=== PATIENT | male | born 1995 | race Hispanic/Latino ===

== ENCOUNTER 2023-02-22 13:50 | Inpatient (IN) | payer BC ==
[2023-02-22] MEDS ORDERED: Iopamidol-370 76% 500 ML MDV (1 ML CHARGE) ONE (14:23)
[2023-02-22 14:39] LABS: #Monocytes 0.3 thou/uL (0.11-0.59); #Neutrophils 3.6 thou/uL (1.40-6.50); %Lymphocytes 20.8 % (21.0-51.0); %Monocytes 6.9 % (0.0-10.0); %Neutrophils 72.1 % (42.0-75.0); Hematocrit 38.9 % (42.0-52.0); Hemoglobin 13.3 g/dL (14.0-18.0); Mean Corpuscular HGB CONC 34.2 g/dL (32.0-36.0); Mean Corpuscular Hemoglobin 28.4 pg (27.0-31.0); Mean Corpuscular Volume 82.9 fl (78.0-98.0); Platelet Count 174 10x3/uL (130-400); RBC Distribution Width 12.5 % (11.5-14.5); Red Blood Cell (RBC) Count 4.69 mill/uL (4.70-6.10)
[2023-02-22] MEDS ORDERED: Acetaminophen 500 MG TAB ONE (14:48)
[2023-02-22 15:02] LABS: ALT (SGPT) 55 U/L (8-55); AST (SGOT) 32 U/L (5-34); Albumin 3.9 g/dL (3.5-5.0); Alkaline Phosphatase 68 U/L (40-110); Anion Gap 11 mmol/L (10-20); BUN (Urea Nitrogen) 11 mg/dL (8.9-20.6); Bilirubin, Total 0.3 mg/dL (0.2-1.2); Calc. Creatinine Clearance 0 mL/min (70-130); Calcium 8.9 mg/dL (7.8-10.44); Carbon Dioxide 27 mmol/L (22-29); Chloride 101 mmol/L (98-107); Estimated GFR 128; Globulin 4.5 g/dL (2.4-3.5); Glucose 67 mg/dL (70-105); Protein, Total 8.4 g/dL (6.0-8.3); Sodium 135 mmol/L (136-145)
[2023-02-22] MEDS ORDERED: Doxycycline 100 MG CAP ONE (15:48)
[2023-02-22] MEDS ORDERED: cefTRIAXone (ROCEPHIN) 1 GM VIAL ONE (15:49)
[2023-02-22] MEDS ORDERED: Ondansetron PF 4 MG/2 ML Vial ONE (16:10)
[2023-02-22 16:15] LABS: Bacteria/HPF None Seen HPF (None Seen); Bilirubin Negative (Negative); Blood, Urine 1+ (Negative); CAUTI Indications for Culture Dysuria,urgency,freq; Clarity Clear (Clear); Glucose, Urine (Dipstick) Normal (Negative); Ketone, Urine Negative (Negative); Leukocyte Negative Leu/uL (Negative); Nitrite Negative (Negative); Protein, Urine (Dipstick) Negative (Neg-Trace); RBC/HPF 0-3 HPF (0-3); Squamous Epithelial None Seen HPF (0-3); Urobilinogen Normal mg/dL (Less than 2); WBC/HPF None Seen HPF (0-3)
[2023-02-22 16:17] LABS: Urine Culture Reflex No No
[2023-02-22] MEDS ORDERED: Ibuprofen 200 MG TAB ONE (16:21)
[2023-02-22] MEDS ORDERED: Ondansetron PF 4 MG/2 ML Vial IVP PRN (16:31)
[2023-02-22] MEDS ORDERED: Ibuprofen 800 MG TAB PO PRN (16:34)
[2023-02-22] MEDS ORDERED: Acyclovir Sodium 650 MG in Sodium Chloride 0.9% 100 ML IVPB SCH (17:00)
[2023-02-22] MEDS ORDERED: Polyethylene Glycol 3350 17 GM Packet PO SCH (17:15)
[2023-02-22] MEDS ORDERED: cefTRIAXone\\ROCEPHIN 1 GM in Sodium Chloride 0.9% 100 ML IVPB SCH (17:15)
[2023-02-22 17:46] LABS: SARS-CoV-2 NAA Rapid Test DETECTED (NotDetected)
[2023-02-22] MEDS: Sodium Chloride 0.9% 1,000 ML IV SCH (20:58)
[2023-02-22] MEDS: Senokot S 8.6-50 MG TAB PO SCH (21:06)
[2023-02-22] MEDS: HYDROcodone/Acetaminophen 5/325 mg Tablet PO PRN (21:07)
[2023-02-22 21:17] LABS: Lactic Acid 1.4 mmol/L (0.5-2.2)
[2023-02-23] MEDS: HYDROcodone/Acetaminophen 5/325 mg Tablet PO PRN ×2 (01:06→11:31)
[2023-02-23] MEDS: Acetaminophen 325 MG TAB PO PRN ×2 (01:07→17:35)
[2023-02-23] MEDS: Sodium Chloride 0.9% 1,000 ML IV SCH ×2 (01:57→06:22)
[2023-02-23 05:07] LABS: Hematocrit 32.4 % (42.0-52.0); Manual Diff?? YES; Mean Corpuscular Hemoglobin 28.7 pg (27.0-31.0); Mean Corpuscular Volume 84.6 fl (78.0-98.0); Platelet Count 126 10x3/uL (130-400); RBC Distribution Width 12.5 % (11.5-14.5); Red Blood Cell (RBC) Count 3.83 mill/uL (4.70-6.10); White Blood Cell (WBC) Count 6.3 10x3/uL (4.8-10.8)
[2023-02-23 05:12] LABS: Delete Auto Diff?? YES
[2023-02-23 05:13] VITALS: BMI 22.0
[2023-02-23 05:33] LABS: Anion Gap 10 mmol/L (10-20); BUN (Urea Nitrogen) 11 mg/dL (8.9-20.6); Calc. Creatinine Clearance 125 mL/min (70-130); Calcium 7.7 mg/dL (7.8-10.44); Carbon Dioxide 23 mmol/L (22-29); Chloride 105 mmol/L (98-107); Estimated GFR 124; Glucose 76 mg/dL (70-105); Potassium 3.2 mmol/L (3.5-5.1); Sodium 135 mmol/L (136-145)
[2023-02-23 05:36] LABS: Band 33 % (5-11); CellaVision Operator ID lab.sh2; Lymphocytes 7 % (21-51); Monocytes 2 % (0-10); Neutrophil 58 % (42-75); Ovalocytes SLIGHT = 2-5 cells HPF (0-1); Platelet Adequacy Comment Platelets Decreased; Polychromasia SLIGHT = 2-3 cells HPF (0-2); Smudge Cells 6.9 %; Stomatocytes SLIGHT = 2-5 cells HPF (0-1); Total Cell Count 101
[2023-02-23] MEDS: Doxycycline 100 MG in Sodium Chloride 0.9% 100 ML IVPB SCH ×2 (06:22→18:14)
[2023-02-23] MEDS: Senokot S 8.6-50 MG TAB PO SCH ×2 (10:03→20:37)
[2023-02-23] MEDS: Polyethylene Glycol 3350 17 GM Packet PO SCH (10:03)
[2023-02-23] MEDS ORDERED: Potassium Bicarbonate/Cit Ac 20 MEQ TAB PO SCH (10:30)
[2023-02-23 15:43] LABS: Reference Lab Name LABCORP
[2023-02-23 16:37] LABS: %CD4 (Helper/Inducer) 4.7 % (30.8-58.5); Absolute CD4 28 /uL (359-1519); Lymphocytes/Gated Cell Count 0.6 x10E3/uL (0.7-3.1); Total Lymphocyte 11 % (Not Estab.); WBC Total Count 5.4 x10E3/uL (3.4-10.8)
[2023-02-23] MEDS ORDERED: cefTRIAXone\\ROCEPHIN 2 GM in Sodium Chloride 0.9% 100 ML IVPB SCH (17:00)
[2023-02-23] MEDS ORDERED: Ketorolac Tromethamine 30 MG/ML VIAL IVP PRN (17:19)
[2023-02-23] MEDS ORDERED: Scopolamine 1 mg/72 hour Patch TOP SCH (17:30)
[2023-02-24] MEDS: Sodium Chloride 0.9% 1,000 ML IV SCH ×3 (00:07→17:37)
[2023-02-24] MEDS: Acetaminophen 325 MG TAB PO PRN ×2 (00:35→08:54)
[2023-02-24] MEDS: Doxycycline 100 MG in Sodium Chloride 0.9% 100 ML IVPB SCH (05:28)
[2023-02-24] MEDS: Senokot S 8.6-50 MG TAB PO SCH ×2 (08:55→20:32)
[2023-02-24] MEDS: Polyethylene Glycol 3350 17 GM Packet PO SCH (08:55)
[2023-02-24] MEDS: Sulfameth/Trimethoprim DS 800-160mg TAB PO SCH (08:55)
[2023-02-24] MEDS ORDERED: valACYclovir 500 MG TAB PO SCH (09:00)
[2023-02-24] MEDS: Raltegravir Potassium 400 MG TAB PO SCH (20:32)
[2023-02-24] MEDS: Famotidine 20 MG TAB PO SCH (20:32)
[2023-02-24] MEDS: Doxycycline 100 MG CAP PO SCH (20:32)
[2023-02-25] MEDS: Sodium Chloride 0.9% 1,000 ML IV SCH ×2 (03:19→16:19)
[2023-02-25 08:51] LABS: #Monocytes 0.3 thou/uL (0.11-0.59); #Neutrophils 1.2 thou/uL (1.40-6.50); %Lymphocytes 34.3 % (21.0-51.0); %Monocytes 11.7 % (0.0-10.0); %Neutrophils 53.6 % (42.0-75.0); Hematocrit 34.5 % (42.0-52.0); Hemoglobin 11.6 g/dL (14.0-18.0); Mean Corpuscular HGB CONC 33.6 g/dL (32.0-36.0); Mean Corpuscular Hemoglobin 28.2 pg (27.0-31.0); Mean Corpuscular Volume 83.9 fl (78.0-98.0); Mean Platelet Volume 9.2 fL (7.4-10.4); Platelet Count 125 10x3/uL (130-400); RBC Distribution Width 12.7 % (11.5-14.5); Red Blood Cell (RBC) Count 4.11 mill/uL (4.70-6.10); White Blood Cell (WBC) Count 2.3 10x3/uL (4.8-10.8)
[2023-02-25] MEDS: Doxycycline 100 MG CAP PO SCH (08:51)
[2023-02-25] MEDS: Famotidine 20 MG TAB PO SCH (08:51)
[2023-02-25] MEDS: Senokot S 8.6-50 MG TAB PO SCH (08:51)
[2023-02-25] MEDS: Sulfameth/Trimethoprim DS 800-160mg TAB PO SCH (08:51)
[2023-02-25] MEDS: Polyethylene Glycol 3350 17 GM Packet PO SCH (08:52)
[2023-02-25] MEDS: Raltegravir Potassium 400 MG TAB PO SCH (08:52)
[2023-02-25] MEDS ORDERED: Emtricitabine/Tenofovir 200-300 MG TAB PO SCH (09:00)
[2023-02-25 09:13] LABS: Anion Gap 10 mmol/L (10-20); BUN (Urea Nitrogen) 4 mg/dL (8.9-20.6); Calc. Creatinine Clearance 145 mL/min (70-130); Carbon Dioxide 25 mmol/L (22-29); Chloride 106 mmol/L (98-107); Estimated GFR 129; Glucose 75 mg/dL (70-105); Potassium 3.8 mmol/L (3.5-5.1); Sodium 137 mmol/L (136-145)
[2023-02-25 16:19] LABS: Chlam.trachomatis by PCR,Urine Not Detected (NotDetected); GC N.gonorrhoeae PCR,UrineVOID Not Detected (NotDetected)
[2023-02-25 17:05] VITALS: BP 111/76; TEMP 98.1
[2023-02-25 18:13] LABS: Adenovirus F 40-41 Not Detected (Not Detected); Astrovirus Not Detected (Not Detected); C. difficile toxin A+B Not Detected (Not Detected); Campylobacter by PCR Not Detected (Not Detected); Cryptosporidium Not Detected (Not Detected); Cyclospora cayetanensis Not Detected (Not Detected); Entamoeba histolytica Not Detected (Not Detected); Enteroaggregative E. coli Not Detected (Not Detected); Enteropathogenic E. coli DETECTED (Not Detected); Enterotoxigenic E. coli Not Detected (Not Detected); Giardia lamblia Not Detected (Not Detected); Norovirus GI-GII Not Detected (Not Detected); Plesiomonas shigelloides Not Detected (Not Detected); Rotavirus A Not Detected (Not Detected); Salmonella DETECTED (Not Detected); Sapovirus Not Detected (Not Detected); Shiga-toxin-producing E coli Not Detected (Not Detected); Shigella/Enteroinvasive E coli Not Detected (Not Detected); Vibrio Not Detected (Not Detected); Vibrio cholerae Not Detected (Not Detected); Yersinia enterocolitica Not Detected (Not Detected)
[2023-02-25 21:08] LABS: LOG10 HIV-1 RNA 6.155 (.)
[2023-02-26] MEDS ORDERED: FLU VACC QS2023-24(6MOS UP)/PF 60 MCG/0.5 ML SYRINGE IM ONE (09:00)
[2023-02-28 08:37] LABS: HSV 1 - DNA Negative (Negative); HSV 2 - DNA Negative (Negative)
[2023-02-28 15:13] LABS: CMV DNA-PCR Test Positive < 200 IU/mL (Negative)
== END 2023-02-25 17:25 | disposition home or self-care (01) | DRG 975 ==
LOC: ERS 13:50 → SUATTDRO 13:50 → MSONC 16:08 → T4-A 02-23 16:53
PROVIDERS: ADMIT Internal Medicine; ATTEND Internal Medicine
DX: B20 Human immunodeficiency virus [HIV] disease (principal); A41.89 Other specified sepsis; E87.1 Hypo-osmolality and hyponatremia; J12.82 Pneumonia due to coronavirus disease 2019; U07.1 COVID-19; B97.89 Other viral agents as the cause of diseases classified elsewhere; K62.89 Other specified diseases of anus and rectum; F17.290 Nicotine dependence, other tobacco product, uncomplicated; K59.00 Constipation, unspecified; F31.9 Bipolar disorder, unspecified; F20.9 Schizophrenia, unspecified; F17.210 Nicotine dependence, cigarettes, uncomplicated; A63.0 Anogenital (venereal) warts; E87.6 Hypokalemia; Z79.2 Long term (current) use of antibiotics
CPT/HCPCS: 36415; 71046; 74177; 80048; 80053; 81001; 83605; 83630; 85025; 86361; 87015; 87040; 87206; 87328; 87329; 87385; 87491; 87497; 87507; 87529; 87536; 87591; 87661; 96361; 96365; 96367; 96375; J0133; J0696; J1650; J1885; J2405; J3490; J7050; Q9967

== ENCOUNTER 2024-12-13 01:13 | Emergency (ER) | payer SELFPAY | END 2024-12-13 02:30 | LOC: ERS 01:13 | DX: L02.31 Cutaneous abscess of buttock (principal); F17.200 Nicotine dependence, unspecified, uncomplicated | CPT/HCPCS: 93005; 99283 ==